=== PATIENT | female | born 1945 | race Caucasian/White ===

== ENCOUNTER 2016-12-15 09:53 | Outpatient (CLI) | payer MEDICARE, BC ==
[~2016-12-15] VITALS: Ht 165.1 cm; Wt 68.0 kg
[2016-12-15] MEDS ORDERED: ELIQUIS5 MG PO (11:50)
[2016-12-15] MEDS ORDERED: FISH OIL 1,0001 EACH PO (11:50)
[2016-12-15] MEDS ORDERED: AMLODIPINE BESY10 MG PO (11:50)
[2016-12-15] MEDS ORDERED: HYDROCHLOROTHIA25 MG PO (11:51)
[2016-12-15] MEDS ORDERED: NITROSTAT 0.40.4 MG SL (11:52)
[2016-12-15] MEDS ORDERED: VIT K2 (11:53)
[2016-12-15] MEDS ORDERED: 5-HTP50 MG PO (11:54)
[2016-12-16] MEDS ORDERED: LEVAQUIN TAB 5500 MG PO (05:08)
[2016-12-16] MEDS ORDERED: TYLENOL W/CODEIN1 E1 PO (05:09)
== END 2016-12-16 12:53 | disposition home or self-care (01) ==
LOC: CATH 09:53 → PROG CARE 16:52 → CATH 12-16 12:53 → PROG CARE 12-16 12:53
PROC: 0JH606Z Insertion of Pacemaker, Dual Chamber into Chest Subcutaneous Tissue and Fascia, Open Approach (ICD-10-PCS; principal; 2016-12-15)
PROC: 02H63JZ Insertion of Pacemaker Lead into Right Atrium, Percutaneous Approach (ICD-10-PCS; 2016-12-15)
PROC: 02HK3JZ Insertion of Pacemaker Lead into Right Ventricle, Percutaneous Approach (ICD-10-PCS; 2016-12-15)
DX: R00.1 Bradycardia, unspecified (principal); I49.5 Sick sinus syndrome; I45.89 Other specified conduction disorders; I48.0 Paroxysmal atrial fibrillation; R53.1 Weakness; I10 Essential (primary) hypertension; I25.10 Atherosclerotic heart disease of native coronary artery without angina pectoris; E78.5 Hyperlipidemia, unspecified; I70.1 Atherosclerosis of renal artery; Z95.1 Presence of aortocoronary bypass graft; Z79.01 Long term (current) use of anticoagulants
CPT/HCPCS: 33208; 71010; 93005; 96365; 96366; 96375; C1785; C1898; G0378; J1200; J1644; J2250; J3010; J3370; J7040; J7050; J7070